=== PATIENT | male | born 1965 | race American Indian/Alaskan Native ===

== ENCOUNTER 2018-12-02 10:28 | Emergency (ER) | payer MEDICAID ==
[2018-12-02 10:49] VITALS: BP 135/90
--- NOTE | 2018-12-02 10:58 | UC ---
Lower Extremity/Ankle HPI - HPI Summary HPI Summary: pt has been incarcerated for 39 years (since 14yo). was released 3 days ago. he has had long history of low back pain and sciatica in L leg, numbness and pain bilat. pain. was treated with ibuprofen and lidoderm patches, and TENS unit , which only gives minimal relief. is ambulatory, no weakness. he has started walking on uneven ground, which has increased pain since he is used to walking only on cement - History of Current Complaint Chief Complaint: UCLowerExtremity Stated Complaint: PAIN IN LEGS Time Seen by Provider: 12/02/18 10:50 Hx Obtained From: Patient Onset/Duration: Gradual Onset Severity Currently: Moderate Pain Intensity: 7 Aggravating Factor(s): Ambulation Alleviating Factor(s): Rest Able to Bear Weight: Yes - Allergies/Home Medications Allergies/Adverse Reactions: Allergies Allergy/AdvReac Type Severity Reaction Status Date / Time No Known Allergies Allergy Verified 12/02/18 10:39 Home Medications: Home Medications NK [No Home Medications Reported] 12/02/18 [History Confirmed 12/02/18] PMH/Surg Hx/FS Hx/Imm Hx Previously Healthy: Yes GI/ History: Gastroesophageal Reflux - when taking high dose ibuprofen - Surgical History Surgical History: Yes Surgery Procedure, Year, and Place: L arm repair 2005 - Family History Known Family History: Positive: Non-Contributory - Social History Occupation: Unemployed Lives: With Family Alcohol Use: None Substance Use Type: None Smoking Status (MU): Never Smoked Tobacco Review of Systems All Other Systems Reviewed And Are Negative: Yes Constitutional: Positive: Negative Skin: Positive: Negative. Negative: Rash Respiratory: Positive: Negative Cardiovascular: Positive: Negative Musculoskeletal: Negative: Decreased ROM Neurological: Positive: Paresthesia - bilateral feet Physical Exam Triage Information Reviewed: Yes Appearance: Well-Appearing, No Pain Distress, Well-Nourished Vital Signs: Initial Vital Signs Temp 97.8 F 12/02/18 10:40 Pulse 72 12/02/18 10:40 Resp 18 12/02/18 10:40 BP 135/90 12/02/18 10:40 Pulse Ox 98 12/02/18 10:40 Vital Signs Reviewed: Yes Neck exam: Normal Neck: Positive: Supple Respiratory Exam: Normal Respiratory: Positive: Lungs clear Cardiovascular Exam: Normal Cardiovascular: Positive: RRR Musculoskeletal: Positive: Strength Intact, ROM Limited @ - LS spine d/t pain on flexion Neurological Exam: Normal Psychological Exam: Normal Skin Exam: Normal Skin: Negative: Rashes Lower Extremity Course/Dx - Differential Dx/Diagnosis Provider Diagnosis: Low back pain, Neuropathy Discharge - Sign-Out/Discharge Documenting (check all that apply): Patient Departure All imaging exams completed and their final reports reviewed: No Studies - Discharge Plan Condition: Good Disposition: HOME Patient Education Materials: Sciatica (ED), Back Pain (ED), Core Strengthening Exercises (GEN) Referrals: No Primary Care Phys,NOPCP [Primary Care Provider] - Cristina Winston MD [Medical Doctor] - (call tomorrow to set up appointment) Additional Instructions: start core muscle exercises and low back exercises do back massages twice a day after lying on heating pad for 15-20 minutes follow-up with Dr. Winston (orthopedic sports medicine) and also establish with primary care provider as discussed - Billing Disposition and Condition Condition: GOOD Disposition: Home
== END 2018-12-02 11:20 | disposition home or self-care (01) ==
LOC: UCEAST 10:28
DX: M54.5 Low back pain (principal); G62.9 Polyneuropathy, unspecified; K21.9 Gastro-esophageal reflux disease without esophagitis
CPT/HCPCS: 99201; G0463

== ENCOUNTER 2020-06-23 11:06 | Observation (INO) ==
[~2020-06-23 11:06] MED LIST: Buffered Lidocaine 1% SYRIN 1 ml INTRADERM ONE
[2020-06-23] MEDS ORDERED: fentaNYL 100 mcg/2 ml 50 MCG/ML VIAL ONE ×2 (11:27→17:49)
[2020-06-23] MEDS ORDERED: Propofol 10 MG/ML 20 ML BTL ONE ×4 (11:27→15:23)
[2020-06-23] MEDS ORDERED: Midazolam 2 mg/2 ml VIAL 1 mg/ml 2 ml VIAL (2 mg) ONE (11:27)
[2020-06-23] MEDS ORDERED: ceFAZolin 2 GM PREMIX 2 GM/50 ML BAG ONE (11:33)
[2020-06-23] MEDS: Lactated Ringers 1000 ml BAG 1,000 ML IV SCH ×2 (11:55→20:20)
[2020-06-23] MEDS ORDERED: diPHENhydraMINE IV 50 MG/ML 1 ml VIAL (BENADRYL) ONE (13:58)
[2020-06-23] MEDS ORDERED: diPHENhydraMINE IV 50 MG/ML 1 ml VIAL (BENADRYL) IV PRN ×2 (14:22→16:28)
[2020-06-23] MEDS ORDERED: Naloxone 0.4 mg VIAL 0.4 mg/ml 1 ml VIAL IV PRN ×2 (14:22→16:18)
[2020-06-23] MEDS ORDERED: fentaNYL 100 mcg/2 ml 50 MCG/ML VIAL IV PRN (14:22)
[2020-06-23] MEDS ORDERED: Phenylephrine 40 mcg/mL 10mL (400mcg) SYRINGE ONE (15:06)
[2020-06-23] MEDS ORDERED: Ondansetron 4 mg VIAL 2 MG/ML 2 ml VIAL IV PRN (16:28)
[2020-06-23] MEDS ORDERED: Ondansetron ODT 4 mg TAB 4 MG TAB PO PRN (16:28)
[2020-06-23] MEDS ORDERED: Morphine 2 MG/ML SYRINGE IV PRN (16:28)
[2020-06-23] MEDS ORDERED: Magnesium Hydroxide LIQ 30 ML UDC PO PRN (16:28)
[2020-06-23] MEDS ORDERED: Lactulose 30 ml UDC PO PRN (16:28)
[2020-06-23] MEDS ORDERED: diPHENhydraMINE 25 mg TAB PO PRN (16:28)
[2020-06-23] MEDS ORDERED: Lactated Ringers 1000 ml BAG 1,000 ML IV SCH (17:00)
[2020-06-23] MEDS: fentaNYL 100 mcg/2 ml 50 MCG/ML VIAL IV PRN ×4 (17:55→19:42)
[2020-06-23] MEDS: Magnesium Hydroxide LIQ 30 ML UDC PO SCH (21:01)
[2020-06-23] MEDS: ceFAZolin 1 GM ADVAN 1 GM in NS 0.9% 50 ML 50 ML IVPB SCH (22:20)
[2020-06-24] MEDS: ceFAZolin 1 GM ADVAN 1 GM in NS 0.9% 50 ML 50 ML IVPB SCH ×2 (05:37→14:28)
[2020-06-24 06:00] LABS: Hematocrit 35 % (42-52); Hemoglobin 11.4 g/dL (14.0-18.0); Platelet Count 213 10^3/uL (150-450)
[2020-06-24 06:23] LABS: BUN/Creatinine Ratio 14.9 (8-20); Calcium 8.1 mg/dL (8.6-10.3); EGFR African American 92.5 (>60); EGFR Non-African American 76.4 (>60)
[2020-06-24] MEDS: Magnesium Hydroxide LIQ 30 ML UDC PO SCH (07:55)
[2020-06-24] MEDS ORDERED: Vitamin THERAPEUTIC TAB PO SCH (09:00)
[2020-06-24 12:17] VITALS: BP 106/76
== END 2020-06-24 15:40 | disposition home or self-care (01) ==
LOC: OR 11:06 → SSU 11:06
PROVIDERS: ADMIT Student in an Organized Health Care Education/Training Program; ATTEND Orthopaedic Surgery Adult Reconstructive Orthopaedic Surgery